=== PATIENT | female | born 1995 | race African-American/Black ===

== ENCOUNTER 2017-01-13 14:38 | Emergency (ER) | payer OTHER ==
[~2017-01-13] VITALS: Ht 160 cm; Wt 87.7 kg
[2017-01-13 15:04] VITALS: BP 105/46
--- NOTE | 2017-01-13 15:40 | NUR ---
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 SKIN IS PINK/WARM/DRY; AAOX4 WITH EVEN AND STEADY GAIT; LUNGS CLEAR BL; PT DENIES ANY FEVER, CP, SOB, OR COUGH AT THIS TIME; PATIENT STATES PAIN OF 7/10 AT THIS TIME; PATIENT POSITIONED FOR COMFORT; HOB ELEVATED; BEDRAILS UP X2; BED DOWN. ER MADE AWARE OF PT STATUS. Addendum: 01/13/17 at 1613 by [email or web address] PT STS HAS VAG DISCHARGE X 1 WK.
[2017-01-13 16:10] LABS: APPEARANCE,URINE CLEAR (CLEAR); BILIRUBIN,URINE NEGATIVE (NEGATIVE); BLOOD, URINE NEGATIVE (NEGATIVE); COLOR,URINE YELLOW (YELLOW); LEUKOCYTE ESTERASE ,URINE NEGATIVE (NEGATIVE); NITRITE, URINE NEGATIVE (NEGATIVE); UGLUCOSE NEGATIVE (NEGATIVE)
--- NOTE | 2017-01-13 16:20 | NUR ---
PELVIC EXAM DONE BY DR SANTAMARIA; PT TOLERATED PROCEDURE WELL.
[2017-01-13 16:58] VITALS: BP 118/66
--- NOTE | 2017-01-13 16:58 | NUR ---
Patient discharged with v/s stable. Written and verbal after care instructions given and explained. Patient alert, oriented and verbalized understanding of instructions. Ambulatory with steady gait. All questions addressed prior to discharge. ID band removed. Patient advised to follow up with PMD. Rx of FLAGYL given. Patient educated on indication of medication including possible reaction and side effects. Opportunity to ask questions provided and answered.
== END 2017-01-13 16:58 | disposition home or self-care (01) ==
LOC: MED 14:38
DX: N76.0 Acute vaginitis (principal); J44.9 Chronic obstructive pulmonary disease, unspecified; Z88.6 Allergy status to analgesic agent; Z91.010 Allergy to peanuts
CPT/HCPCS: 81003; 81025; 87070; 87210; 99284

== ENCOUNTER 2018-02-04 15:37 | Emergency (ER) | payer OTHER ==
[~2018-02-04] VITALS: Ht 170.2 cm; Wt 91.6 kg
[2018-02-04 15:44] VITALS: BP 136/56
--- NOTE | 2018-02-04 15:50 | NUR ---
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 PT REPORTS THAT THE PAIN AND BLEEDING HAS BEEN GETTING PROGRESSIVELY WORSE W/ SATURATING THROUGH CLOTHES AND BEDDING WITHIN 1 HOUR. PT IS AAOX4, VSS AT THIS TIME, BED DOWN, BEDRAIL UP X 1,ER MD AWARE AND NOTIFIED OF PT STATUS. HX C-SEC
--- NOTE | 2018-02-04 16:28 | NUR ---
ultrasound at bedside
--- NOTE | 2018-02-04 16:30 | NUR ---
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 PT REPORTS THAT THE PAIN AND BLEEDING HAS BEEN GETTING PROGRESSIVELY WORSE W/ SATURATING THROUGH CLOTHES AND BEDDING WITHIN 1 HOUR. PT IS AAOX4, VSS AT THIS TIME, BED DOWN, BEDRAIL UP X 1,ER AWARE AND NOTIFIED OF PT STATUS. HX C-SEC
[2018-02-04 16:45] LABS: BASOPHILS % (AUTO) 0.3 % (0.0-2.0); EOSINOPHILS # (AUTO) 0.4 K/uL (0-0.4); EOSINOPHILS % (AUTO) 3.2 % (0.0-4.0); HEMATOCRIT 34.5 % (36-48); HEMOGLOBIN 11.3 g/dL (12.0-16.0); LYMPHOCYTES # (AUTO) 3.1 K/uL (2.5-16.5); LYMPHOCYTES % (AUTO) 22.4 % (20.5-51.1); MEAN CORPUSCULAR HEMOGLOBIN 29 pg (27-31); MEAN CORPUSCULAR HGB CONC 33 g/dL (33-37); MEAN CORPUSCULAR VOLUME 86.7 fL (80-94); MONOCYTES % (AUTO) 6.9 % (1.7-9.3); NEUTROPHILS # (AUTO) 9.3 K/uL (1.8-7.7); NEUTROPHILS % (AUTO) 67.2 % (42.2-75.2); PLATELET COUNT (AUTO) 204 K/uL (140-450); RED BLOOD CELL COUNT(AUTO) 3.98 MIL/uL (4.20-5.40); RED CELL DISTRIBUTION WIDTH 15.2 % (11.6-13.7); WHITE BLOOD COUNT (AUTO) 13.9 K/uL (4.8-10.8)
[2018-02-04 18:00] VITALS: BP 123/52
--- NOTE | 2018-02-04 18:00 | NUR ---
Patient discharged with v/s stable. Written and verbal after care instructions given and explained. Patient alert, oriented and verbalized understanding of instructions. Ambulatory with steady gait. All questions addressed prior to discharge. ID band removed. Patient advised to follow up with PMD. Rx of Methergine given. Patient educated on indication of medication including possible reaction and side effects. Opportunity to ask questions provided and answered.
== END 2018-02-04 18:00 | disposition home or self-care (01) ==
LOC: MED 15:37
DX: O72.1 Other immediate postpartum hemorrhage (principal); O99.53 Diseases of the respiratory system complicating the puerperium; J44.9 Chronic obstructive pulmonary disease, unspecified; Z37.9 Outcome of delivery, unspecified; Z91.010 Allergy to peanuts; Z88.6 Allergy status to analgesic agent
CPT/HCPCS: 36415; 76830; 81025; 85025; 99284; Q0092

== ENCOUNTER 2018-08-09 11:01 | Emergency (ER) | payer OTHER ==
[~2018-08-09] VITALS: Ht 160 cm; Wt 87.5 kg
[2018-08-09 11:05] VITALS: BP 118/45
--- NOTE | 2018-08-09 11:12 | NUR ---
Patient ambulated to bed 1. RN evaluating patient at bedside.
--- NOTE | 2018-08-09 11:15 | NUR ---
C/O BILAT LOWER ABD PAIN 10/10 SHARP/ACHEY X 1 DAY. PT GUARDING ABDOMEN. PT DENIES VOMITING/DIARRHEA/FEVER. BOWEL SOUNDS ACTIVE X4, FIRM/FLAT AND TENDER TO PALPATION ON BILAT LOWER ABD. LBM 08/08/18 REGUALR/FORMED. PT REPORTS GIVING 7 MONTHS AGO AND NOT HAVING A MENSTRUAL CYCLE SINCE THEN. PT IS HCG + AT THIS TIME AND STATES SHE WAS UNAWARE OF . BED IN LOW POSITION, SIDE RAIL UP X1.
[2018-08-09] MEDS ORDERED: NACL 0.9% 1,000 ML IV ONE (11:23)
[2018-08-09] MEDS ORDERED: NACL 0.9% 1,000 ML IV SCH (11:23)
[2018-08-09] MEDS ORDERED: MORPHINE SULFATE 4 MG/ML SYR IVP ONE ×2 (11:25→15:00)
[2018-08-09] MEDS ORDERED: ONDANSETRON 4 MG/2 ML VIAL IVP ONE ×2 (11:25→15:00)
[2018-08-09 12:00] LABS: BASOPHILS % (AUTO) 0.1 % (0.0-2.0); EOSINOPHILS # (AUTO) 0.8 K/uL (0-0.4); EOSINOPHILS % (AUTO) 4.9 % (0.0-4.0); HEMATOCRIT 33.2 % (36-48); LYMPHOCYTES # (AUTO) 2.3 K/uL (2.5-16.5); MEAN CORPUSCULAR HEMOGLOBIN 28 pg (27-31); MEAN CORPUSCULAR HGB CONC 33 g/dL (33-37); MEAN CORPUSCULAR VOLUME 84.7 fL (80-94); MONOCYTES % (AUTO) 6.6 % (1.7-9.3); NEUTROPHILS # (AUTO) 11.6 K/uL (1.8-7.7); NEUTROPHILS % (AUTO) 73.9 % (42.2-75.2); PLATELET COUNT (AUTO) 192 K/uL (140-450); RED BLOOD CELL COUNT(AUTO) 3.92 MIL/uL (4.20-5.40); RED CELL DISTRIBUTION WIDTH 16.2 % (11.6-13.7); WHITE BLOOD COUNT (AUTO) 15.7 K/uL (4.8-10.8)
[2018-08-09 12:02] LABS: BILIRUBIN,URINE NEGATIVE (NEGATIVE); BLOOD, URINE TRACE-I (NEGATIVE); COLOR,URINE YELLOW (YELLOW); LEUKOCYTE ESTERASE ,URINE TRACE (NEGATIVE); NITRITE, URINE POSITIVE (NEGATIVE); UGLUCOSE NEGATIVE (NEGATIVE)
[2018-08-09 12:10] LABS: APPEARANCE,URINE SLIGHTLY HAZY (CLEAR)
[2018-08-09 12:13] LABS: ANION GAP 11.4 (8-16); CARBON DIOXIDE 23.9 mmol/L (21-32); CREATININE 0.6 mg/dL (0.6-1.3); POTASSIUM 3.3 mmol/L (3.5-5.1)
[2018-08-09 12:18] LABS: ALBUMIN 2.7 g/dL (3.4-5.0); TOTAL BILIRUBIN 0.1 mg/dL (0.0-1.0)
[2018-08-09 12:34] LABS: LYMPHOCYTES % (AUTO) 14.5 % (20.5-51.1)
[2018-08-09] MEDS ORDERED: cefTRIAXone 1,000 MG VIAL ONE (15:12)
[2018-08-09 16:13] VITALS: BP 98/54
--- NOTE | 2018-08-09 16:13 | NUR ---
Patient discharged with v/s stable. Written and verbal after care instructions given and explained. Patient alert, oriented and verbalized understanding of instructions. Ambulatory with steady gait. All questions addressed prior to discharge. ID band removed. Patient advised to follow up with PMD. Rx of LEVSIN & VANTIN given. Patient educated on indication of medication including possible reaction and side effects. Opportunity to ask questions provided and answered. IS HERE TO DRIVE PT HOME
--- NOTE | 2018-08-11 13:43 | NUR ---
pt received rocephin during ER visit. reviewed chart; appropriate treatment given for positive klebsiella pneumoniae in urine---no further intervention required at this time.
== END 2018-08-09 16:13 | disposition home or self-care (01) ==
LOC: MED 11:01
DX: O23.42 Unspecified infection of urinary tract in pregnancy, second trimester (principal); J45.909 Unspecified asthma, uncomplicated; Z3A.19 19 weeks gestation of pregnancy; Z88.6 Allergy status to analgesic agent; Z88.8 Allergy status to other drugs, medicaments and biological substances
CPT/HCPCS: 36415; 76817; 80053; 81001; 82150; 83690; 84702; 85025; 86900; 86901; 87086; 87186; 96361; 96365; 96375; 96376; 99284; J0696; J2270; J2405; J7030; J7060; Q0092; 81025

== ENCOUNTER 2018-09-30 11:32 | Observation (INO) | payer OTHER ==
[~2018-09-30] VITALS: Ht 165.1 cm; Wt 93.0 kg
[2018-09-30 12:15] VITALS: BP 119/48
[2018-09-30 13:24] VITALS: BP 113/58
[2018-09-30] MEDS ORDERED: METR250T2 PO (13:56)
== END 2018-09-30 16:15 | disposition home or self-care (01) ==
LOC: MED 11:32 → EDSTATUS 13:23 → MLD 13:36
PROVIDERS: ADMIT Obstetrics & Gynecology; ATTEND Obstetrics & Gynecology
DX: O26.892 Other specified pregnancy related conditions, second trimester (principal); R10.13 Epigastric pain; Z3A.26 26 weeks gestation of pregnancy
CPT/HCPCS: 76805; 81000; 99281; G0378; Q0092

== ENCOUNTER 2018-11-13 01:00 | Observation (INO) | payer OTHER ==
[~2018-11-13] VITALS: Ht 160 cm; Wt 94.8 kg
[~2018-11-13 01:00] MED LIST: METR250T2 PO
[2018-11-13] MEDS: TERBUTALINE 1 MG/ML VIAL SUBQ SCH ×2 (02:25→03:50)
[2018-11-13 02:26] VITALS: BP 121/77
[2018-11-13] MEDS ORDERED: TERBUTALINE 1 MG/ML VIAL SUBQ ONE (02:29)
[2018-11-13 03:34] LABS: BARBITURATE, URINE NEG. ng/ml (NEG <=200); BENZODIAZEPINE, URINE NEG. ng/mL (NEG <=200); CANNABINOID, URINE NEG. ng/mL (NEG <=50); COCAINE, URINE NEG. ng/mL (NEG <=300); OPIATE, URINE NEG. ng/mL (NEG <=2000); PHENCYCLIDINE SCREEN,URINE NEG. ng/mL (NEG <=25)
[2018-11-13 03:45] LABS: APPEARANCE,URINE CLEAR (CLEAR); BILIRUBIN,URINE NEGATIVE (NEGATIVE); BLOOD, URINE NEGATIVE (NEGATIVE); COLOR,URINE YELLOW (YELLOW); LEUKOCYTE ESTERASE ,URINE TRACE (NEGATIVE); NITRITE, URINE NEGATIVE (NEGATIVE); UGLUCOSE NEGATIVE (NEGATIVE)
[2018-11-13 04:00] LABS: RBC,URINE 0-5 /HPF (0-5); WBC,URINE 0-5 /HPF (0-5)
== END 2018-11-13 04:00 | disposition left against medical advice (07) ==
LOC: MLD 01:00
PROVIDERS: ADMIT Obstetrics & Gynecology; ATTEND Obstetrics & Gynecology
DX: O26.899 Other specified pregnancy related conditions, unspecified trimester (principal); R10.9 Unspecified abdominal pain; Z3A.00 Weeks of gestation of pregnancy not specified
CPT/HCPCS: 80305; 81000; 81001; 96372; C1758; G0378; J3105

== ENCOUNTER 2019-05-15 15:54 | Emergency (ER) | payer OTHER ==
[~2019-05-15] VITALS: Ht 160 cm; Wt 86.2 kg
[2019-05-15 15:56] VITALS: BP 105/86
[2019-05-15 17:57] VITALS: BP 122/78
--- NOTE | 2019-05-15 17:59 | NUR ---
Stable VSS Pain free MD has reassessed and Dc'd home To exit
== END 2019-05-15 18:00 | disposition home or self-care (01) ==
LOC: MED 15:54
DX: B35.6 Tinea cruris (principal); J45.909 Unspecified asthma, uncomplicated; Z79.899 Other long term (current) drug therapy; Z88.6 Allergy status to analgesic agent; Z88.5 Allergy status to narcotic agent; Z91.010 Allergy to peanuts
CPT/HCPCS: 99282

== ENCOUNTER 2019-10-29 22:29 | Emergency (ER) | payer OTHER ==
[~2019-10-29] VITALS: Ht 160 cm; Wt 94.8 kg
[2019-10-29 22:35] VITALS: BP 135/68
--- NOTE | 2019-10-29 22:42 | NUR ---
PT AMBULATED TO BED #6
--- NOTE | 2019-10-29 22:45 | NUR ---
PT AMBULATED TO RESTROOM
--- NOTE | 2019-10-29 22:46 | NUR ---
PT AMBULATED BACK TO BED 06, STEADY GAIT
--- NOTE | 2019-10-29 22:49 | NUR ---
24 Y/O C/O LT HAND/WRIST PAIN S/P DROPPING HEAVY WEIGHT ON IT WHEN HELPING GRANDPA MOVE SOMETHING. 10/10 STABBING PAIN. TENDER TO TOUCH. ABLE TO MOVE THUMB AND INDEX FINGER. NO BRUISING OR SWELLING NOTED. MEDHX- NONE ALLX- TYLENOL, ASA, MOTRIN, TORADOL, AVOCADO, PEANUT BUTTER.
--- NOTE | 2019-10-29 22:50 | NUR ---
XRAY AT BEDSIDE
--- NOTE | 2019-10-29 23:07 | NUR ---
XRAY AT BEDSIDE
--- NOTE | 2019-10-29 23:32 | NUR ---
ERMD AT BEDSIDE
--- NOTE | 2019-10-29 23:46 | NUR ---
ERMD AT BEDSIDE
[2019-10-29] MEDS ORDERED: traMADol 50 MG TAB PO ONE (23:50)
[2019-10-30 00:36] VITALS: BP 135/68
== END 2019-10-30 00:35 | disposition home or self-care (01) ==
LOC: MED 22:29
DX: S62.305A Unspecified fracture of fourth metacarpal bone, left hand, initial encounter for closed fracture (principal); J44.0 Chronic obstructive pulmonary disease with (acute) lower respiratory infection; X50.0XXA Overexertion from strenuous movement or load, initial encounter; X50.9XXA Other and unspecified overexertion or strenuous movements or postures, initial encounter; Y93.89 Activity, other specified; Y92.89 Other specified places as the place of occurrence of the external cause; Y99.8 Other external cause status; Z88.6 Allergy status to analgesic agent; Z91.02 Food additives allergy status; Z91.018 Allergy to other foods; Z88.5 Allergy status to narcotic agent
CPT/HCPCS: 73110; 73130; 81025; 99284

== ENCOUNTER 2023-08-05 20:59 | Emergency (ER) | payer MEDICAID, OTHER ==
[~2023-08-05] VITALS: Ht 160 cm; Wt 108.9 kg
[~2023-08-05 20:59] MED LIST changes: +METR-520 PO; -METR250T2 PO
[2023-08-05 21:22] VITALS: BP 144/78; PULSE 16; RESP 16; TEMP 97.7; O2SAT 99
[2023-08-05] MEDS ORDERED: HYDR28CR67 TP (21:53)
[2023-08-05] MEDS ORDERED: ELIMC TP (21:53)
[2023-08-05] MEDS ORDERED: DIPH25TA53 PO (21:53)
== END 2023-08-05 22:14 | disposition home or self-care (01) ==
LOC: MED 20:59
DX: R21 Rash and other nonspecific skin eruption (principal); J45.909 Unspecified asthma, uncomplicated; J44.9 Chronic obstructive pulmonary disease, unspecified; Z88.8 Allergy status to other drugs, medicaments and biological substances; Z88.5 Allergy status to narcotic agent; Z79.1 Long term (current) use of non-steroidal anti-inflammatories (NSAID); Z79.899 Other long term (current) drug therapy; Z79.82 Long term (current) use of aspirin; Z91.018 Allergy to other foods
CPT/HCPCS: 99281; 99282

== ENCOUNTER 2023-10-17 23:01 | Emergency (ER) | payer MEDICAID ==
[~2023-10-17] VITALS: Ht 167.6 cm; Wt 105.2 kg
[~2023-10-17 23:01] MED LIST changes: +DIPH25TA53 PO; +ELIMC TP; +HYDR28CR67 TP
[2023-10-17 23:03] VITALS: BP 132/82; PULSE 82; RESP 18; TEMP 98.4; O2SAT 98
[2023-10-17 23:16] VITALS: O2SAT 98
[2023-10-17 23:22] LABS: APPEARANCE,URINE CLEAR (CLEAR); BILIRUBIN,URINE NEGATIVE (NEGATIVE); BLOOD, URINE NEGATIVE (NEGATIVE); COLOR,URINE YELLOW (YELLOW); LEUKOCYTE ESTERASE ,URINE NEGATIVE (NEGATIVE); NITRITE, URINE NEGATIVE (NEGATIVE); PROTEIN,URINE NEGATIVE (NEGATIVE); UGLUCOSE NEGATIVE (NEGATIVE)
[2023-10-17] MEDS ORDERED: NAPR-337 PO (23:57)
== END 2023-10-18 00:01 | disposition home or self-care (01) ==
LOC: MED 23:01
DX: B34.9 Viral infection, unspecified (principal); Z20.822 Contact with and (suspected) exposure to COVID-19; J44.9 Chronic obstructive pulmonary disease, unspecified; Z79.899 Other long term (current) drug therapy; Z88.6 Allergy status to analgesic agent; Z91.010 Allergy to peanuts; Z91.018 Allergy to other foods
CPT/HCPCS: 81003; 81025; 99283